=== PATIENT | female | born 1980 | race Two or more races ===

== ENCOUNTER 2017-02-12 12:51 | Outpatient (CLI) | payer OTHER | END 2017-02-12 20:44 | disposition home or self-care (01) | LOC: MLB 12:51 | PROVIDERS: ATTEND Internal Medicine | DX: E11.9 Type 2 diabetes mellitus without complications (principal) | CPT/HCPCS: 36415; 83036 ==

== ENCOUNTER 2017-04-08 11:25 | Outpatient (CLI) | payer OTHER ==
[2017-04-08 12:47] LABS: APPEARANCE,URINE CLEAR (CLEAR); BILIRUBIN,URINE NEGATIVE (NEGATIVE); BLOOD, URINE NEGATIVE (NEGATIVE); COLOR,URINE YELLOW (YELLOW); LEUKOCYTE ESTERASE ,URINE NEGATIVE (NEGATIVE); NITRITE, URINE NEGATIVE (NEGATIVE); PH,URINE 5.5 (5.0-9.0); UGLUCOSE NEGATIVE (NEGATIVE)
[2017-04-08 13:04] LABS: CREATININE 0.9 mg/dL (0.6-1.3); PHOSPHORUS 3.6 mg/dL (2.5-4.9); POTASSIUM 3.5 mmol/L (3.5-5.1)
[2017-04-08 13:34] LABS: CARBON DIOXIDE 30.5 mmol/L (21-32); URIC ACID 5.3 mg/dL (2.6-7.2)
[2017-04-11 18:21] LABS: CREATININE 0.9 mg/dL (0.6-1.3)
== END 2017-04-08 20:45 | disposition home or self-care (01) ==
LOC: MLB 11:25
DX: N18.2 Chronic kidney disease, stage 2 (mild) (principal); R79.89 Other specified abnormal findings of blood chemistry
CPT/HCPCS: 36415; 81003; 82040; 82435; 82565; 82570; 82575; 82947; 84100; 84132; 84295; 84520; 84550; 86160

== ENCOUNTER 2017-04-10 08:18 | Outpatient (CLI) | payer OTHER | END 2017-04-10 22:50 | disposition home or self-care (01) | LOC: MUS 08:18 | DX: N18.2 Chronic kidney disease, stage 2 (mild) (principal) | CPT/HCPCS: 76770 ==

== ENCOUNTER 2018-06-26 16:01 | Outpatient (CLI) | payer OTHER | END 2018-06-26 20:15 | disposition home or self-care (01) | LOC: MRD 16:01 | PROVIDERS: ATTEND Internal Medicine | DX: Z02.1 Encounter for pre-employment examination (principal); Z86.11 Personal history of tuberculosis | CPT/HCPCS: 71045; Q0092 ==